=== PATIENT | female | born 1950 | race Caucasian/White ===

== ENCOUNTER 2017-08-29 08:40 | Day surgery (SDC) | payer OTHER | END 2017-08-29 16:10 | disposition home or self-care (01) | LOC: AMB-ENDOS 08:40 | DX: C20 Malignant neoplasm of rectum (principal) ==

== ENCOUNTER → 2018-09-22 | Outpatient (CLI) | payer OTHER | END | disposition home or self-care (01) | LOC: SONOGRAMA 07:48 | DX: E04.1 Nontoxic single thyroid nodule (principal) ==

== ENCOUNTER → 2018-12-04 | Outpatient (CLI) | payer OTHER | END | disposition home or self-care (01) | LOC: RAD 10:07 → MAMO-SONO 10:45 | DX: R10.84 Generalized abdominal pain (principal) ==

== ENCOUNTER 2019-02-02 09:14 | Outpatient (CLI) | payer OTHER | END 2019-02-02 09:25 | disposition home or self-care (01) | LOC: RAD 09:14 | DX: M19.90 Unspecified osteoarthritis, unspecified site (principal); M46.47 Discitis, unspecified, lumbosacral region ==

== ENCOUNTER 2020-11-03 08:30 | Day surgery (SDC) | payer OTHER | END 2020-11-03 13:10 | disposition home or self-care (01) | LOC: AMB-ENDOS 08:30 | PROVIDERS: ATTEND Colon & Rectal Surgery | DX: D12.4 Benign neoplasm of descending colon (principal); D12.8 Benign neoplasm of rectum; K64.1 Second degree hemorrhoids; Z20.822 Contact with and (suspected) exposure to COVID-19 ==

== ENCOUNTER 2023-02-20 10:56 | Outpatient (CLI) | payer OTHER | END 2023-02-20 10:59 | disposition home or self-care (01) | LOC: SONOGRAMA 10:56 | PROVIDERS: ATTEND Pathology Anatomic Pathology & Clinical Pathology | DX: D34 Benign neoplasm of thyroid gland (principal); E06.3 Autoimmune thyroiditis ==

== ENCOUNTER 2025-01-14 11:02 | Outpatient (CLI) | payer OTHER | END 2025-01-14 11:06 | disposition home or self-care (01) | LOC: SONOGRAMA 11:02 | PROVIDERS: ATTEND Internal Medicine Cardiovascular Disease | DX: M19.90 Unspecified osteoarthritis, unspecified site (principal) ==